=== PATIENT | female | born 1960 | race Caucasian/White ===

== ENCOUNTER 2017-10-24 08:11 | Outpatient (CLI) | payer MEDICARE, MEDICAID, SELFPAY ==
[2017-10-24 08:40] LABS: Abs Immature Grans 0.01 k/cumm (0.0-0.09); Absolute Basophil Count 0.03 k/cumm (0.0-0.2); Absolute Eosinophil Count 0.16 k/cumm (0.0-0.7); Absolute Lymphocyte Count 1.58 k/cumm (1.2-3.4); Absolute Monocyte Count 0.63 k/cumm (0.11-0.7); Absolute Neutrophil Count 3.93 k/cumm (1.2-6.7); Basophils % 0.5; Eosinophils % 2.5; HCT 45.5 % (36.0-46.0); HGB 15.1 g/dL (12.0-15.5); Immature Grans % 0.2; Lymphocytes % 24.9; Mean Corp. HGB Concentration 33.2 g/dL (32.0-36.0); Mean Corpuscular Hemoglobin 30.3 pg (27.0-33.0); Mean Corpuscular Volume 91.2 fL (80-95); Mean Platelet Volume 9.1 fL (8.0-11.0); Monocytes % 9.9; Platelet Count 192 x1000/uL (130-400); RBC 4.99 m/cumm (4.00-5.20); White Blood Cell Count 6.34 k/cumm (4.4-10.8)
[2017-10-24 08:54] LABS: VALPROIC ACID 55.7 ug/mL (50-100)
[2017-10-24 10:45] LABS: ALT 20 U/L (12-78); AST 14 U/L (15-37); Albumin 3.7 g/dL (3.4-5.0); Alkaline Phosphatase 74 U/L (46-116); Anion Gap 12.7 mmol/L (3-11); BUN 15 mg/dL (7-18); Bilirubin, Total 0.3 mg/dL (0.2-1.0); CO2 23.3 mmol/L (21.0-32.0); CREATININE 0.96 mg/dL (0.55-1.02); Calcium 9.6 mg/dL (8.5-10.1); Chloride 102 mmol/L (98-107); Cholesterol 184 mg/dL (50-200); Glucose 138 mg/dL (70-100); HDL Cholesterol 39 mg/dL (40-60); LDL CHOLESTEROL 113 mg/dL (<100); Potassium 4.4 mmol/L (3.5-5.1); Sodium 138 mmol/L (136-145); Total Protein 7.5 g/dL (6.4-8.2); Triglyceride 216 mg/dL (30-150)
== END 2017-10-24 08:12 ==
PROVIDERS: PCP Specialist/Technologist Athletic Trainer; Visit Provider Nurse Practitioner Psychiatric/Mental Health
DX: F25.0 Schizoaffective disorder, bipolar type (principal); Z51.81 Encounter for therapeutic drug level monitoring; Z79.899 Other long term (current) drug therapy; E88.09 Other disorders of plasma-protein metabolism, not elsewhere classified; D69.6 Thrombocytopenia, unspecified; E78.5 Hyperlipidemia, unspecified; I10 Essential (primary) hypertension
CPT/HCPCS: 36415; 80053; 80061; 83721; 80164; 85025

== ENCOUNTER 2018-01-15 07:10 | Outpatient (CLI) | payer MEDICARE, MEDICAID, SELFPAY ==
[2018-01-15 07:40] LABS: Abs Immature Grans 0.03 k/cumm (0.0-0.09); Absolute Basophil Count 0.03 k/cumm (0.0-0.2); Absolute Eosinophil Count 0.19 k/cumm (0.0-0.7); Absolute Lymphocyte Count 1.59 k/cumm (1.2-3.4); Absolute Monocyte Count 0.57 k/cumm (0.11-0.7); Absolute Neutrophil Count 4.43 k/cumm (1.2-6.7); Basophils % 0.4; Eosinophils % 2.8; HCT 45.2 % (36.0-46.0); HGB 15.2 g/dL (12.0-15.5); Immature Grans % 0.4; Lymphocytes % 23.2; Mean Corp. HGB Concentration 33.6 g/dL (32.0-36.0); Mean Corpuscular Hemoglobin 31.1 pg (27.0-33.0); Mean Corpuscular Volume 92.4 fL (80-95); Mean Platelet Volume 9.1 fL (8.0-11.0); Monocytes % 8.3; Neutrophils % 64.9; Platelet Count 172 x1000/uL (130-400); RBC 4.89 m/cumm (4.00-5.20); RBC Distribution Width 13.2 % (11.7-14.6); White Blood Cell Count 6.84 k/cumm (4.4-10.8)
[2018-01-15 07:54] LABS: VALPROIC ACID 67.4 ug/mL (50-100)
[2018-01-15 08:15] LABS: ALT 21 U/L (12-78); AST 14 U/L (15-37); Albumin 3.8 g/dL (3.4-5.0); Alkaline Phosphatase 91 U/L (46-116); Anion Gap 9.1 mmol/L (3-11); BUN 19 mg/dL (7-18); Bilirubin, Total 0.3 mg/dL (0.2-1.0); CO2 27.9 mmol/L (21.0-32.0); CREATININE 0.92 mg/dL (0.55-1.02); Calcium 9.7 mg/dL (8.5-10.1); Chloride 101 mmol/L (98-107); Glucose 149 mg/dL (70-100); Potassium 4.5 mmol/L (3.5-5.1); Sodium 138 mmol/L (136-145); Total Protein 7.2 g/dL (6.4-8.2)
== END 2018-01-15 07:30 ==
PROVIDERS: PCP Specialist/Technologist Athletic Trainer; Visit Provider Nurse Practitioner Psychiatric/Mental Health
DX: F25.0 Schizoaffective disorder, bipolar type (principal); Z51.81 Encounter for therapeutic drug level monitoring; Z79.899 Other long term (current) drug therapy
CPT/HCPCS: 36415; 80053; 80164; 85025

== ENCOUNTER 2018-02-27 08:28 | Outpatient (CLI) | payer MEDICARE, MEDICAID, SELFPAY ==
[2018-02-27 09:20] LABS: VALPROIC ACID 78.4 ug/mL (50-100)
[2018-02-27 10:08] LABS: ALT 19 U/L (12-78); AST 11 U/L (15-37); Albumin 3.6 g/dL (3.4-5.0); Alkaline Phosphatase 71 U/L (46-116); Anion Gap 8.6 mmol/L (3-11); BUN 14 mg/dL (7-18); Bilirubin, Total 0.3 mg/dL (0.2-1.0); CO2 29.4 mmol/L (21.0-32.0); CREATININE 0.92 mg/dL (0.55-1.02); Calcium 9.6 mg/dL (8.5-10.1); Chloride 104 mmol/L (98-107); Glucose 161 mg/dL (70-100); Potassium 4.4 mmol/L (3.5-5.1); Sodium 142 mmol/L (136-145); Total Protein 7.1 g/dL (6.4-8.2)
[2018-03-02 05:02] LABS: Haloperidol 14 ng/mL (5 - 16); Reduced Haloperidol 4.3 ng/mL (10 - 80)
== END 2018-02-27 08:48 ==
PROVIDERS: PCP Specialist/Technologist Athletic Trainer; Visit Provider Nurse Practitioner Psychiatric/Mental Health
DX: F25.0 Schizoaffective disorder, bipolar type (principal); Z51.81 Encounter for therapeutic drug level monitoring; Z79.899 Other long term (current) drug therapy
CPT/HCPCS: 36415; 80053; 80173; 80164

== ENCOUNTER 2018-12-29 10:03 | Emergency (ER) | payer MEDICARE, MEDICAID, SELFPAY ==
[2018-12-29 10:04] VITALS: BP 173/91; PULSE 103; RESP 18; TEMP 36.7; O2SAT 96
--- NOTE | 2018-12-29 10:18 | ED.GENADUL_ITS ---
Discharge Plan Disposition Patient Disposition: HOME Condition: Stable Discharge Details Chief Complaint: Orthopedic Clinical Impression: Chronic pain in left foot, Chronic pain of left ankle Primary Care Provider: Atilio Modi ED Provider: Jean Calixto Home Meds and New Rx's Prescriptions: No Action docusate sodium 100 MG capsule 100 mg PO DAILY RF: 0 haloperidol 5 MG tablet 5 mg PO BID RF: 0 loxapine succinate 25 MG capsule 150 mg PO BID RF: 0 haloperidol decanoate 100 MG/1 ML solution 100 mg IM .MONTHLY RF: 0 oxazepam 15 MG capsule 15 mg PO BID RF: 0 nicotine (polacrilex) [Nicorelief] 4 MG gum 1 piece gum PO .Q1-2H RF: 0 divalproex 500 MG tablet extended release 24 hr 2,500 mg PO HS RF: 0 aspirin [[place] Aspirin] 81 MG tablet,chewable 81 mg PO DAILY RF: 0 melatonin-pyridoxine (vit B6) 1 TAB tablet 6 mg PO HS RF: 0 metformin 500 MG tablet extended release 24 hr 1,000 mg PO BID RF: 0 sennosides [senna] 8.6 MG tablet 8.6 mg PO HS RF: 0 acetaminophen [Pain Reliever] 325 MG tablet 650 mg PO TID PRNRF: 0 ranitidine HCl [Zantac] 150 MG tablet 150 mg PO BID RF: 0 ammonium lactate 12 % Cream 1 applic TOPICAL QD-BID PRNRF: 0 multivitamin with minerals [Multiple Vitamin-Minerals] Tablet 1 tab PO DAILY RF: 0 atorvastatin 10 mg Tablet 10 mg PO DAILY RF: 0 losartan 25 mg Tablet 25 mg PO DAILY RF: 0 glipizide 5 mg Tablet 5 mg PO DAILY RF: 0 Discharge Instructions Instructions: Arthralgia (ED) Additional Instructions: Please wear these supportive ankle brace as I do feel that this will help with your discomfort. For your foot pain you may consider purchasing new shoes or at least shoe inserts to give your foot more support. Feel free to follow-up with local geriatric nurse practitioner for further evaluation or follow-up with your previous geriatric nurse practitioner in [place] as needed. For any further complaints or needs follow-up with your primary care provider for reassessment. For comfort you may take 650 mg of acetaminophen/Tylenol every 6 hours as needed for pain. Referrals: Atilio Modi [Primary Care Provider] - Luiz Lopez DPM [[facility] STAFF PHYSICIAN] - (As needed for reassessment of your foot pain) Discharge Data Discharge Date/Time-TO BE ENTERED AT DEPARTURE: 12/29/18 11:14 Medical Decision Making Patient presenting to the emergency department for chief complaint of left foot and ankle pain. Patient reports years ago she had a fall in the shower and injured her left ankle. She states since then she has had significant foot and ankle discomfort. She denies any recent injury or trauma but does state that she has had a increase in walking and ambulation. She does complain of significant amount of calluses on the right foot but otherwise denies any other medical complaints or needs at this time. Patient does have medical history of paranoid schizophrenia and bipolar and does seem significantly anxious at this time but is alert and oriented appropriately. Physical exam does show significant callus formation on the right foot but otherwise unremarkable exam. In regards to the left foot and ankle there is some medial tenderness to the foot otherwise no abnormality is appreciated. Given that patient is complaining about moderate amount of pain and discomfort I do feel is appropriate for radiological imaging to evaluate for any significant or severe changes. Pending results patient given acetaminophen. Review of radiological imaging does show some signs of degeneration of some of the foot and ankle consistent with arthritis or post trauma but I do not see any signs of acute fracture. Review of virtual radiologist report shows the same of no acute findings noted, previous trauma, degenerative changes. Patient placed in a lace up ankle brace to give her further support. Review of primary care records does show that patient has history of complaints of chronic foot and ankle pain. Given this I do not feel that there are any further interventions needed but patient should follow-up with primary care provider or geriatric nurse practitioner for further evaluation. After discussion of diagnosis and plan of care patient has no further needs, questions, or concerns and states clear understanding to return to the emergency department for any worsening symptoms. HPI General Mode of arrival: ambulatory . Date/Time Provider Initiated Documentation: 12/29/18 10:03 . Limitations to Documentation: no limitations . Information obtained by: patient and RN notes reviewed . History of Present Illness described as moderate, with intensity rated at 8. Quality is described as sharp, and is localized to the left and lower extremity. Patient started experiencing this year(s) and it has been constant. Other factors that worsen symptoms (Increased walking) . Patient notes no other symptoms.. Patient did receive the following treatments prior to arrival, none Related Data Home Medications Medication Instructions Recorded Confirmed docusate sodium 100 mg PO DAILY 08/28/14 12/29/18 aspirin [[place] Aspirin] 81 mg PO DAILY 03/03/15 07/16/15 divalproex 2,500 mg PO HS 03/03/15 12/29/18 haloperidol 5 mg PO BID 03/03/15 12/29/18 haloperidol decanoate 100 mg IM .MONTHLY 03/03/15 12/29/18 loxapine succinate 150 mg PO BID 03/03/15 12/29/18 melatonin-pyridoxine (vit B6) 6 mg PO HS 03/03/15 12/29/18 metformin 1,000 mg PO BID 03/03/15 12/29/18 nicotine (polacrilex) [Nicorelief] 1 piece gum PO .Q1-2H 03/03/15 12/29/18 oxazepam 15 mg PO BID 03/03/15 12/29/18 sennosides [senna] 8.6 mg PO HS 06/24/15 12/29/18 acetaminophen [Pain Reliever] 650 mg PO TID PRN 07/16/15 12/29/18 ranitidine HCl [Zantac] 150 mg PO BID tab 07/21/15 12/29/18 ammonium lactate 1 applic TOPICAL QD-BID PRN 12/29/18 12/29/18 atorvastatin 10 mg PO DAILY 12/29/18 12/29/18 glipizide 5 mg PO DAILY 12/29/18 12/29/18 losartan 25 mg PO DAILY 12/29/18 12/29/18 multivitamin with minerals 1 tab PO DAILY 12/29/18 12/29/18 [Multiple Vitamin-Minerals] Previous Rx's Medication Instructions Recorded ranitidine HCl [Zantac] 150 mg PO BID tab 07/21/15 Allergies Allergy/AdvReac Type Severity Reaction Status Date / Time paliperidone AdvReac Intermediate increased Unverified 12/29/18 10:07 LFT's (Invega Sustenna injection) General Stated Complaint: Orthopedic OSCAR: 3 Review of Systems Constitutional Constitutional: Denies frequent falls Musculoskeletal Musculoskeletal: Reports as per HPI, Reports arthralgias, Denies joint swelling, Denies numbness and Denies tingling Integumentary/Breasts Skin/Breast: Denies erythema Neurologic Neurologic: Denies frequent falls, Denies numbness and Denies tingling [facility] Social History Smoking/Tobacco Use Status: Current every day Alcohol Intake: current Drug use: Never Additional Social history: pt states she sometimes feels safe at home. states boyfriend dropped her off and left. Exam Const General: cooperative, no acute distress and anxious Orientation: alert, awake and oriented x3 Resp Effort & Inspection: normal respiratory effort and able to speak in complete sentences Cardio Rate: regular rate Rhythm: regular rhythm Extrem General: normal exam except as noted Right lower extremity: foot Details: toes with normal ROM, no edema, motor- sensory exam Details: two point discrimination normal and light-touch normal and other (Patient has significant calluses to medial aspect of both heel and first MCP); no tenderness Left lower extremity: knee Details: normal to inspection and normal ROM; no tenderness, lower leg Details: no tenderness, ankle Details: normal to inspection, no edema and normal ROM; no tenderness, no abrasions, no la cerations, no ecchymosis and no crepitus and foot Details: normal capillary refill, normal to inspection, tenderness Location: of the medial foot, toes with normal ROM, no edema, vascular exam Details: dorsalis pedis pulse present, posterior tibial pulse present and normal capillary refill and motor-sensory exam Details: two point discrimination normal and light-touch normal; no ecchymosis and no crepitus Course Vital Signs Vital signs: Vital Signs Temperature 36.7 C 12/29/18 10:04 Pulse 103 H 12/29/18 10:04 Respiratory Rate 18 12/29/18 10:04 Blood Pressure 173/91 H 12/29/18 10:04 Pulse Oximetry 96 12/29/18 10:04 Temperature 36.7 C 12/29/18 10:04 Temperature Source Skin 12/29/18 10:04 Pulse 103 H 12/29/18 10:04 Respiratory Rate 18 12/29/18 10:04 Respiratory Effort Non-Labored 12/29/18 10:08 Blood Pressure 173/91 H 12/29/18 10:04 Pulse Oximetry 96 12/29/18 10:04 Pain Level 9 12/29/18 10:04
--- NOTE | 2018-12-29 10:18 | DI.RAD_ITS ---
EXAM: XR ANKLE LT COMPLETE CLINICAL HISTORY: pain TECHNIQUE: COMPARISON: XR FOOT LT COMPLETE from 12/29/2018 FINDINGS: Three views of the ankle and three views of the foot were obtained. There degenerative and possible old post traumatic findings at the tibiotalar joint. No evidence of acute fracture. There are degenerative changes of the joints of the midfoot and forefoot. No evidence of acute fract ure. IMPRESSION:
[2018-12-29] MEDS: Acetaminophen 325 MG TAB 650 MG PO (10:23)
--- NOTE | 2018-12-29 10:53 | DI.VRAD_ITS ---
PROCEDURE INFORMATION: Exam: XR Left Foot Complete Exam date and time: 12/29/2018 10:36 AM Clinical history: 57 years old, female; Other: Pain TECHNIQUE: Imaging protocol: XR Left foot. Views: 3 or more views. COMPARISON: CR LEFT ANKLE COMPLETE 06/30/2015 9:36 AM FINDINGS: Bones/joints: Bipartite medial sesamoid. Irregularity about the distal fifth metatarsal metadiaphysis likely represents sequelae of prior trauma. Degenerative changes of the fifth interphalangeal joint. Mild dorsal midfoot degenerative change. Well-corticated ossific fragment adjacent to the cuboid may represent accessory ossicle versus sequela of prior trauma. Calcaneal enthesophytes. No joint effusion. Soft tissues: Normal. IMPRESSION: 1. No acute fracture. 2. Degenerative and post traumatic changes. Dictated and Authenticated by: Jaylen Cramer MD. Ordering:TYREE Pena MD
--- NOTE | 2018-12-29 10:59 | DI.VRAD_ITS ---
PROCEDURE INFORMATION: Exam: XR Left Ankle Exam date and time: 12/29/2018 10:36 AM Clinical history: 57 years old, female; Other: Pain TECHNIQUE: Imaging protocol: XR Left ankle. Views: 3 or more views. COMPARISON: CR LEFT ANKLE COMPLETE 06/30/2015 9:36 AM FINDINGS: Bones/joints: No acute fracture. No dislocation. Scattered degenerative and chronic post traumatic changes. No ankle joint effusion. Ankle mortise is maintained. Soft tissues: Normal. IMPRESSION: No acute findings. Dictated and Authenticated by: Jaylen Cramer MD. Ordering:TYREE Pena MD
[2018-12-29 11:15] VITALS: BP 132/74; PULSE 76; RESP 16; O2SAT 97
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
== END 2018-12-29 11:14 | disposition home or self-care (01) ==
LOC: ER 11:24
PROVIDERS: Emergency Provider Nurse Practitioner Family; PCP Specialist/Technologist Athletic Trainer
DX: M25.572 Pain in left ankle and joints of left foot (principal); G89.29 Other chronic pain
CPT/HCPCS: 29515; 99283; 73610; 73630; L1902

== ENCOUNTER 2019-01-02 16:57 | Emergency (ER) | payer MEDICARE, MEDICAID, SELFPAY ==
[2019-01-02 17:09] VITALS: BP 170/100; PULSE 105; RESP 16; TEMP 36.3; O2SAT 99
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
[2019-01-02 18:21] LABS: Bilirubin Negative (Negative); Blood Negative (Negative); Clarity Clear (Clear); Glucose Negative (Negative); Ketones Negative (Negative); Leukocyte Esterase Small (Negative); Nitrite Negative (Negative); Specific Gravity <= 1.005 (1.005-1.025); Urobilinogen 0.2 EU/dL (Up TO 0.2); pH 5.5 (5-8)
[2019-01-02 18:29] LABS: Bacteria Negative HPF (Negative); C & S Indicated? Yes; Casts Negative LPF (Negative); Crystals Negative HPF (Negative); Epithelial Cells Negative HPF (Negative); Mucus Negative (Negative); Other Cells Negative (Negative); RBC Negative (0-2)
[2019-01-02 19:17] VITALS: PULSE 107
[2019-01-02 19:26] VITALS: BP 160/94; PULSE 100; RESP 16; O2SAT 96
--- NOTE | 2019-01-02 21:35 | PDOC.MHCN ---
Date of service: 01/02/19 Time of Service: 21:36 Mental Health Crisis Note Presenting Issue How did you arrive at the ED and why did you come: Patient arrived to the ED with Police escort, Ashley Farah. Precipitating Factors Client has been decompensating in the community, as they are not med compliant over the last few weeks. Disposition BEHAVIOR: Patient was anxious and openly sharing her delusions. EYE CONTACT: Patient maintained appropriate eye contact. MOOD: Client was anxious.
== END 2019-01-02 19:25 | disposition home or self-care (01) ==
PROVIDERS: Emergency Provider Physician Assistant; PCP Specialist/Technologist Athletic Trainer
DX: F20.9 Schizophrenia, unspecified (principal); I10 Essential (primary) hypertension
CPT/HCPCS: 81025; 99282; 81003; 81015; 87086

== ENCOUNTER 2019-01-07 07:19 | Emergency (ER) | payer MEDICARE, MEDICAID, SELFPAY ==
[2019-01-07 07:32] VITALS: BP 158/93; PULSE 80; RESP 18; TEMP 36.5; O2SAT 95
--- NOTE | 2019-01-07 07:51 | ED.GENADUL_ITS ---
Discharge Plan Disposition Patient Disposition: HOME Condition: Stable Discharge Details Chief Complaint: PsychEval Clinical Impression: Schizoaffective disorder Primary Care Provider: Atilio Modi ED Provider: Caroline Villareal Home Meds and New Rx's Prescriptions: Continued docusate sodium 100 MG capsule 100 mg PO DAILY RF: 0 haloperidol 5 MG tablet 10 mg PO BID RF: 0 loxapine succinate 25 MG capsule 75 mg PO BID RF: 0 haloperidol decanoate 100 MG/1 ML solution 300 mg IM .MONTHLY RF: 0 oxazepam 15 MG capsule 15 mg PO QHS PRNRF: 0 nicotine (polacrilex) [Nicorelief] 4 MG gum 1 piece gum PO .Q1-2H RF: 0 divalproex 500 MG tablet extended release 24 hr 2,500 mg PO HS RF: 0 aspirin [[place] Aspirin] 81 MG tablet,chewable 81 mg PO DAILY RF: 0 metformin 500 MG tablet extended release 24 hr 1,000 mg PO BID RF: 0 sennosides [senna] 8.6 MG tablet 8.6 mg PO HS RF: 0 acetaminophen [Pain Reliever] 325 MG tablet 650 mg PO TID PRNRF: 0 ranitidine HCl [Zantac] 150 MG tablet 150 mg PO BID RF: 0 ammonium lactate 12 % Cream 1 applic TOPICAL QD-BID PRNRF: 0 multivitamin with minerals [Multiple Vitamin-Minerals] Tablet 1 tab PO DAILY RF: 0 atorvastatin 10 mg Tablet 10 mg PO HS RF: 0 losartan 25 mg Tablet 25 mg PO HS RF: 0 glipizide 5 mg Tablet 5 mg PO DAILY RF: 0 benztropine 1 mg Tablet 0.5 mg PO BID RF: 0 hydroxyzine HCl 25 mg Tablet 25 mg PO TID PRNRF: 0 polyethylene glycol 3350 [Miralax] 17 gram/dose Powder 17 g PO DAILY PRNRF: 0 Discharge Instructions Additional Instructions: Please return immediately to the emergency department if you develop any new or worsening symptoms or if you become otherwise concerned. It is extremely important that you call as soon as possible to make an appointment to be seen in follow-up for this visit by your counselor and by your primary care doctor as we discussed. Referrals: Atilio Modi [Primary Care Provider] - Discharge Data Discharge Date/Time-TO BE ENTERED AT DEPARTURE: 01/07/19 11:23 Medical Decision Making Rivka Mcgowan is a 58-year-old woman with a history of hyperlipidemia, non- insulin dependent diabetes, hypertension, schizoaffective disorder, COPD, chronic kidney disease who presented to the emergency department without medical complaint, stating that she is looking for somebody to give her cigarettes. Per her crisis conditional clinician, patient has been having escalating delusions over the past week, which has occurred episodically with her several times in the past. On exam patient is well and nontoxic appearing although somewhat disheveled. Benign cardiopulmonary exam. Patient with somewhat bizarre behavior, seems to converse normally but intermittently seems to have delusions, e.g. when patient could not find the food that she believed is in the room she started yelling throw it out, throw it out repeatedly, but calmed down within a minute and return to conversing normally. No suicidal ideation, no homicidal ideation, no apparent hallucinations. Concern for schizoaffective disorder inadequately treated by current medications versus inciting factors such as UTI, metabolic/lyte disturbance. Exam/history is not consistent with acute emergent intracranial process, sepsis, pneumonia. Plan for EKG, UA, screening labs, mental health evaluation. Will monitor and reassess. Patient has remained calm and cooperative throughout her stay in the emergency department, she remains alert and oriented and is in no distress. Work-up nondiagnostic. clinical rehabilitation specialist felt that patient would be appropriate for discharge, however given that delusions seem to be increasing somewhat, he did offer admission either at an inpatient facility or at a care bed. I discussed these options with the patient, and she stated that she wanted to go home. She stated to me that she did in fact feel safe at home, and that she would feel better going here than anywhere else. At this time patient I do not have e vidence that patient is a threat to herself or to others. There is no indication to place her involuntarily in an inpatient unit. I had a lengthy discussion with the patient regarding return to emergency department precautions, and importance of outpatient follow-up with her primary care doctor and also with her mental health workers/providers. Patient verbalized understanding of the plan was amenable. All questions were answered. Patient was discharged home with clear plan for outpatient follow-up, with chisel worker planning to schedule appointments for the patient with her mental he alth provider within the next few days. Medical Records Medical records reviewed: Yes I reviewed the patient's medical records. Lab Data Lab results reviewed: Yes I reviewed the patient's lab results. Labs: 01/07/19 08:38 Urine - Reflex from Ua Urine Culture - Final Gram Positive Trupti,Mixed Laboratory Tests Range/Units 01/07/19 01/07/19 01/07/19 08:38 08:38 09:08 WBC (4.4-10.8) k/cumm RBC (4.00-5.20) m/cumm Hgb (12.0-15.5) g/dL Hct (36.0-46.0) % MCV (80-95) fL MCH (27.0-33.0) pg MCHC (32.0-36.0) g/dL RDW (11.7-14.6) % Plt Count (130-400) x1000/uL MPV (8.0-11.0) fL Immature Gran % Neutrophils % Lymphocytes % Monocytes % Eosinophils % Basophils % Absolute Neutrophils (1.2-6.7) k/cumm Absolute Lymphocytes (1.2-3.4) k/cumm Absolute Monocytes (0.11-0.7) k/cumm Absolute Eosinophils (0.0-0.7) k/cumm Absolute Basophils (0.0-0.2) k/cumm Sodium (136-145) mmol/L 137 Potassium (3.5-5.1) mmol/L 3.9 Chloride (98-107) mmol/L 102 Carbon Dioxide (21.0-32.0) mmol/L 26.8 Anion Gap (3-11) mmol/L 8.2 BUN (7-18) mg/dL 13 Creatinine (0.55-1.02) mg/dL 1.00 Estimated GFR/1.73 m2 (mL/min/1.73m2) 57.15 Glucose (70-100) mg/dL 119 H Calcium (8.5-10.1) mg/dL 9.7 Total Bilirubin (0.2-1.0) mg/dL 0.3 AST (15-37) U/L 30 ALT (14-59) U/L 27 Alkaline Phosphatase (46-116) U/L 77 Total Protein (6.4-8.2) g/dL 8.1 Albumin (3.4-5.0) g/dL 3.6 TSH (0.36-3.74) uIU/mL 0.97 Urine Color (Yellow) Yellow Urine Clarity (Clear) Clear Urine pH (5-8) 6.0 Ur Specific [place] (1.005-1.025) <= 1.005 Urine Protein (Negative) mg/dL Negative Urine Ketones (Negative) mg/dL Negative Urine Blood (Negative) Negative Urine Nitrite (Negative) Negative Urine Bilirubin (Negative) Negative Urine Urobilinogen (Up TO 0.2) EU/dL 0.2 Ur Leukocyte Esterase (Negative) Small H Urine RBC (0-2) 0-2 Urine WBC (0-5) HPF 3-5 Ur Epithelial Cells (Negative) HPF Rare Urine Crystals (Negative) HPF Negative Urine Bacteria (Negative) HPF Rare Urine Casts (Negative) LPF Negative Urine Mucus (Negative) Negative Ur Culture Indicated? Yes Urine Glucose (Negative) mg/dL Negative Salicylates (2.8-20.0) mg/dL Urine Opiates Screen (Negative) Negative Urine Methadone Screen (Negative) Negative Acetaminophen (10-30) ug/mL Ur Barbiturates Screen (Negative) Negative Ur Tricyclics Screen (Negative) Negative Ur Amphetamines Screen (Negative) Negative U Benzodiazepines Scrn (Negative) Negative Urine Cocaine Screen (Negative) Negative Ur THC Screen (Negative) Negative Range/Units 01/07/19 01/07/19 09:08 09:08 WBC (4.4-10.8) k/cumm 9.35 RBC (4.00-5.20) m/cumm 5.02 Hgb (12.0-15.5) g/dL 15.0 Hct (36.0-46.0) % 45.0 MCV (80-95) fL 89.6 MCH (27.0-33.0) pg 29.9 MCHC (32.0-36.0) g/dL 33.3 RDW (11.7-14.6) % 13.8 Plt Count (130-400) x1000/uL 221 MPV (8.0-11.0) fL 8.9 Immature Gran % 0.3 Neutrophils % 70.2 Lymphocytes % 18.2 Monocytes % 9.9 Eosinophils % 1.2 Basophils % 0.2 Absolute Neutrophils (1.2-6.7) k/cumm 6.56 Absolute Lymphocytes (1.2-3.4) k/cumm 1.70 Absolute Monocytes (0.11-0.7) k/cumm 0.93 H Absolute Eosinophils (0.0-0.7) k/cumm 0.11 Absolute Basophils (0.0-0.2) k/cumm 0.02 Sodium (136-145) mmol/L Potassium (3.5-5.1) mmol/L Chloride (98-107) mmol/L Carbon Dioxide (21.0-32.0) mmol/L Anion Gap (3-11) mmol/L BUN (7-18) mg/dL Creatinine (0.55-1.02) mg/dL Estimated GFR/1.73 m2 (mL/min/1.73m2) Glucose (70-100) mg/dL Calcium (8.5-10.1) mg/dL Total Bilirubin (0.2-1.0) mg/dL AST (15-37) U/L ALT (14-59) U/L Alkaline Phosphatase (46-116) U/L Total Protein (6.4-8.2) g/dL Albumin (3.4-5.0) g/dL TSH (0.36-3.74) uIU/mL Urine Color (Yellow) Urine Clarity (Clear) Urine pH (5-8) Ur Specific [place] (1.005-1.025) Urine Protein (Negative) mg/dL Urine Ketones (Negative) mg/dL Urine Blood (Negative) Urine Nitrite (Negative) Urine Bilirubin (Negative) Urine Urobilinogen (Up TO 0.2) EU/dL Ur Leukocyte Esterase (Negative) Urine RBC (0-2) Urine WBC (0-5) HPF Ur Epithelial Cells (Negative) HPF Urine Crystals (Negative) HPF Urine Bacteria (Negative) HPF Urine Casts (Negative) LPF Urine Mucus (Negative) Ur Culture Indicated? Urine Glucose (Negative) mg/dL Salicylates (2.8-20.0) mg/dL 9.6 Urine Opiates Screen (Negative) Urine Methadone Screen (Negative) Acetaminophen (10-30) ug/mL < 2 L Ur Barbiturates Screen (Negative) Ur Tricyclics Screen (Negative) Ur Amphetamines Screen (Negative) U Benzodiazepines Scrn (Negative) Urine Cocaine Screen (Negative) Ur THC Screen (Negative) ECG Data Attestation: I personally reviewed and interpreted this ECG (s) as follows: Interpretation: EKG shows sinus tachycardia at 106, normal axis, nonspecific ST changes, normal QRS interval, no STEMI, nondiagnostic EKG HPI General Mode of arrival: ambulatory . Date/Time Provider Initiated Documentation: 01/07/19 07:48 . Information obtained by: patient, RN notes reviewed and old records reviewed . HPI Narrative: Rivka Mcgowan is a 58-year-old woman with a history of hyperlipidemia, [id number] diabetes, hypertension, COPD, schizoaffective disorder, chronic kidney disease presenting to the emergency department requesting cigarettes, denies any complaint. Patient [facility], and the cloth designer came out to talk to her. Patient states that a very nice person drove me to the emergency department so I could get some cigarettes. Patient reports that she has chronic pain in both of her feet for several years, but the pain is only present when she is standing. She states that while resting in bed as she is now she has no pain whatsoever. She denies fevers, vomiting, diarrhea, shortness of breath, recent illness. Patient reports she has been eating and drinking as usual. clinical rehabilitation specialist who knows patient well is present in the emergency department. He states that over the past week patient's delusions have been worsening somewhat. He states that similar episodes have occurred several times in the past, although patient's schizoaffective disease is usually relatively well controlled by her medications. He states that there have been no changes in her medications. Her medications have been delivered to her morning and night, and she is watched while she takes them.. [facility] and was mildly disruptive, and was thus brought to the emergency department by police. Patient denies suicidality homicidality. She does state that she does not feel safe at home. She states I have a big mouth and I have been running it, so they might come after me for that. She does not state who they is. Related Data Home Medications Medication Instructions Recorded Confirmed docusate sodium 100 mg PO DAILY 08/28/14 01/07/19 aspirin [[place] Aspirin] 81 mg PO DAILY 03/03/15 01/07/19 divalproex 2,500 mg PO HS 03/03/15 01/07/19 haloperidol 10 mg PO BID 03/03/15 01/07/19 haloperidol decanoate 300 mg IM .MONTHLY 03/03/15 01/07/19 loxapine succinate 75 mg PO BID 03/03/15 01/07/19 metformin 1,000 mg PO BID 03/03/15 01/07/19 nicotine (polacrilex) [Nicorelief] 1 piece gum PO .Q1-2H 03/03/15 01/07/19 oxazepam 15 mg PO QHS PRN 03/03/15 01/07/19 sennosides [senna] 8.6 mg PO HS 06/24/15 01/07/19 acetaminophen [Pain Reliever] 650 mg PO TID PRN 07/16/15 01/07/19 ranitidine HCl [Zantac] 150 mg PO BID tab 07/21/15 01/07/19 ammonium lactate 1 applic TOPICAL QD-BID PRN 12/29/18 01/07/19 atorvastatin 10 mg PO HS 12/29/18 01/07/19 glipizide 5 mg PO DAILY 12/29/18 01/07/19 losartan 25 mg PO HS 12/29/18 01/07/19 multivitamin with minerals 1 tab PO DAILY 12/29/18 01/07/19 [Multiple Vitamin-Minerals] benztropine 0.5 mg PO BID 01/02/19 01/07/19 hydroxyzine HCl 25 mg PO TID PRN 01/02/19 01/07/19 polyethylene glycol 3350 [Miralax] 17 g PO DAILY PRN 01/07/19 01/07/19 Previous Rx's Medication Instructions Recorded ranitidine HCl [Zantac] 150 mg PO BID tab 07/21/15 Allergies Allergy/AdvReac Type Severity Reaction Status Date / Time paliperidone AdvReac Intermediate increased Unverified 01/07/19 14:42 LFT's (Invega Sustenna injection) General Stated Complaint: PsychEval OSCAR: 3 Review of Systems Narrative: Constitutional: denies fevers Eyes: denies eye pain ENT: denies facial pain, dental pain, sore throat Cardiovascular: denies chest pain Respiratory: denies SOB, cough GI: denies abdominal pain, vomiting, diarrhea : denies flank pain MSK: denies back pain, neck pain, arthralgias, myalgias Skin: denies rash Neuro: denies headaches, weakness PFSH Medical History Ankle joint pain (Acute) Drug-induced diabetes mellitus (Acute) Drug-induced diabetes mellitus with hyperlipidemia (Acute) Drug-induced diabetes mellitus without complication (Acute) Hip bursitis, left (Acute) Hyperbilirubinemia (Acute) Hyperlipidemia (Acute) Hypertension (Chronic) Neck pain (Acute) Schizoaffective disorder (Acute) Tactile hallucinations (Acute) Thrombocytopenia (Chronic) Social History Smoking/Tobacco Use Status: Current every day Tobacco Type: cigarettes Alcohol Intake: current Drug use: Never Exam Narrative Exam Narrative: Constitutional: well and [id number]-[id number], pleasant, con versing normally HENT: head atraumatic/normocephalic/normal inspection, mucous membranes moist Eyes: conjunctiva normal, sclera normal, pupils 3mm b/l Neck: no stridor, normal ROM, trachea midline Chest: normal inspection Resp: normal work of breathing, LCTAB Cardio: normal rate, normal rhythm, no murmur appreciated GI: abdomen soft, non-tender, non-distended Back: normal inspection, no rash Skin: warm, dry, normal color, no rash Neuro: alert, not altered, grossly non-focal, normal tone, oriented x3 Ext: no edema, patient is wearing socks and refuses to remove her socks for foot examination Psych: normal mood, normal affect, some delusional thinking, intermittently odd behavior, no suicidality, no homicidality Course Vital Signs Vital signs: Vital Signs Temperature 36.5 C 01/07/19 07:32 Pulse 80 01/07/19 07:32 Respiratory Rate 18 01/07/19 07:32 Blood Pressure 158/93 H 01/07/19 07:32 Pulse Oximetry 95 01/07/19 07:32 Temperature 36.5 C 01/07/19 07:32 Temperature Source Temporal Artery Scan 01/07/19 07:32 Pulse 80 01/07/19 07:32 Respiratory Rate 18 01/07/19 07:32 Respiratory Effort Non-Labored 01/07/19 07:40 Blood Pressure 158/93 H 01/07/19 07:32 Blood Pressure Position Sitting 01/07/19 07:32 Pulse Oximetry 95 01/07/19 07:32 Oxygen Delivery Method Room Air 01/07/19 07:32 Oxygen Flow Rate 0 01/07/19 07:32 Pain Level 0 01/07/19 07:32
[2019-01-07 08:52] LABS: Bilirubin Negative (Negative); Blood Negative (Negative); Clarity Clear (Clear); Glucose Negative (Negative); Ketones Negative (Negative); Leukocyte Esterase Small (Negative); Nitrite Negative (Negative); Specific Gravity <= 1.005 (1.005-1.025); Urobilinogen 0.2 EU/dL (Up TO 0.2)
[2019-01-07 08:58] LABS: *AMPHETAMINES SCREEN URINE Negative (Negative); *BARBITURATES SCREEN URINE Negative (Negative); *BENZODIAZEPINES SCREEN URINE Negative (Negative); Cannabinoids THC Negative (Negative); Cocaine Screen,Urine Negative (Negative); METHADONE URINE SCREEN Negative (Negative); OPIATES URINE SCREEN Negative (Negative)
[2019-01-07 09:03] LABS: Tricyclic Antidepressants Negative (Negative)
[2019-01-07 09:08] LABS: RBC 0-2 (0-2)
[2019-01-07 09:09] LABS: Bacteria Rare HPF (Negative); C & S Indicated? Yes; Casts Negative LPF (Negative); Crystals Negative HPF (Negative); Epithelial Cells Rare HPF (Negative); Mucus Negative (Negative)
[2019-01-07 09:19] LABS: Abs Immature Grans 0.03 k/cumm (0.0-0.09); Absolute Basophil Count 0.02 k/cumm (0.0-0.2); Absolute Eosinophil Count 0.11 k/cumm (0.0-0.7); Absolute Monocyte Count 0.93 k/cumm (0.11-0.7); Absolute Neutrophil Count 6.56 k/cumm (1.2-6.7); Basophils % 0.2; Eosinophils % 1.2; Immature Grans % 0.3; Lymphocytes % 18.2; Mean Corp. HGB Concentration 33.3 g/dL (32.0-36.0); Mean Corpuscular Hemoglobin 29.9 pg (27.0-33.0); Mean Corpuscular Volume 89.6 fL (80-95); Mean Platelet Volume 8.9 fL (8.0-11.0); Monocytes % 9.9; Neutrophils % 70.2; Platelet Count 221 x1000/uL (130-400); RBC 5.02 m/cumm (4.00-5.20); RBC Distribution Width 13.8 % (11.7-14.6); White Blood Cell Count 9.35 k/cumm (4.4-10.8)
[2019-01-07 09:37] LABS: ALT 27 U/L (14-59); AST 30 U/L (15-37); Albumin 3.6 g/dL (3.4-5.0); Alkaline Phosphatase 77 U/L (46-116); Anion Gap 8.2 mmol/L (3-11); BUN 13 mg/dL (7-18); Bilirubin, Total 0.3 mg/dL (0.2-1.0); CO2 26.8 mmol/L (21.0-32.0); Calcium 9.7 mg/dL (8.5-10.1); Chloride 102 mmol/L (98-107); Estimated GFR 57.15 (mL/min/1.73m2); Glucose 119 mg/dL (70-100); Potassium 3.9 mmol/L (3.5-5.1); Sodium 137 mmol/L (136-145); TSH 0.97 uIU/mL (0.36-3.74); Total Protein 8.1 g/dL (6.4-8.2)
[2019-01-07 09:50] LABS: Salicylate 9.6 mg/dL (2.8-20.0)
[2019-01-07 09:54] LABS: Acetaminophen < 2 ug/mL (10-30)
[2019-01-07 11:23] VITALS: PULSE 103; RESP 18; TEMP 36.7; O2SAT 96
--- NOTE | 2019-01-07 13:01 | PDOC.MHCN_ITS ---
Date of service: 01/07/19 Time of Service: 07:30 Mental Health Crisis Note Presenting Issue How did you arrive at the ED and why did you come: Client arrived at ER via police. Precipitating Factors Client denies SI/HI Disposition BEHAVIOR: Client seems to be responding to AH. Not immediately cooperative, but re-directable. EYE CONTACT: intense at times. MOOD: labile AFFECT: Manic APPETITE: States she is not eating, but did consume coffee and donuts while in ER. SLEEP(trouble falling/staying asleep: Client states she is not sleeping. Plan Client states that she is not willing to go to a psych hospital or a care bed. Will discharge home after labs results are in and she chats with the doctor. Signature Clinician's Name/Title: Srinivas Schafer, billing customer service representative
== END 2019-01-07 11:23 | disposition home or self-care (01) ==
PROVIDERS: Emergency Provider Student in an Organized Health Care Education/Training Program; PCP Specialist/Technologist Athletic Trainer
DX: F25.9 Schizoaffective disorder, unspecified (principal); E11.22 Type 2 diabetes mellitus with diabetic chronic kidney disease; N18.9 Chronic kidney disease, unspecified; I12.9 Hypertensive chronic kidney disease with stage 1 through stage 4 chronic kidney disease, or unspecified chronic kidney disease; J44.9 Chronic obstructive pulmonary disease, unspecified; Z79.84 Long term (current) use of oral hypoglycemic drugs; F17.210 Nicotine dependence, cigarettes, uncomplicated
CPT/HCPCS: 36415; 80053; 80307; 99284; 80329; 81003; 81015; 84443; 85025; 87086

== ENCOUNTER 2019-01-07 14:15 | Emergency (ER) | payer MEDICARE, MEDICAID, SELFPAY ==
[2019-01-07 14:22] VITALS: BP 158/102; PULSE 95; RESP 18; TEMP 36.7; O2SAT 99
--- NOTE | 2019-01-07 14:40 | ED.GENADUL_ITS ---
Discharge Plan Disposition Patient Disposition: OTHER Condition: Stable Discharge Details Chief Complaint: PsychEval Clinical Impression: Schizoaffective disorder Primary Care Provider: Atilio Modi ED Provider: Caroline Villareal Home Meds and New Rx's Prescriptions: Continued docusate sodium 100 MG capsule 100 mg PO DAILY RF: 0 haloperidol 5 MG tablet 10 mg PO BID RF: 0 loxapine succinate 25 MG capsule 75 mg PO BID RF: 0 haloperidol decanoate 100 MG/1 ML solution 300 mg IM .MONTHLY RF: 0 oxazepam 15 MG capsule 15 mg PO QHS PRNRF: 0 nicotine (polacrilex) [Nicorelief] 4 MG gum 1 piece gum PO .Q1-2H RF: 0 divalproex 500 MG tablet extended release 24 hr 2,500 mg PO HS RF: 0 aspirin [[place] Aspirin] 81 MG tablet,chewable 81 mg PO DAILY RF: 0 metformin 500 MG tablet extended release 24 hr 1,000 mg PO BID RF: 0 sennosides [senna] 8.6 MG tablet 8.6 mg PO HS RF: 0 acetaminophen [Pain Reliever] 325 MG tablet 650 mg PO TID PRNRF: 0 ranitidine HCl [Zantac] 150 MG tablet 150 mg PO BID RF: 0 ammonium lactate 12 % Cream 1 applic TOPICAL QD-BID PRNRF: 0 multivitamin with minerals [Multiple Vitamin-Minerals] Tablet 1 tab PO DAILY RF: 0 atorvastatin 10 mg Tablet 10 mg PO HS RF: 0 losartan 25 mg Tablet 25 mg PO HS RF: 0 glipizide 5 mg Tablet 5 mg PO DAILY RF: 0 benztropine 1 mg Tablet 0.5 mg PO BID RF: 0 hydroxyzine HCl 25 mg Tablet 25 mg PO TID PRNRF: 0 polyethylene glycol 3350 [Miralax] 17 gram/dose Powder 17 g PO DAILY PRNRF: 0 Discontinued melatonin-pyridoxine (vit B6) 1 TAB tablet 6 mg PO HS RF: 0 Discharge Instructions Additional Instructions: You are being discharged to a care bed. Please go directly there. Please return immediately to the emergency department he develop any new or worsening symptoms or if you become otherwise concerned. It is extremely important that you call as soon as possible to make an appointment to be seen in follow-up for this visit by your primary care doctor, and also by your mental health provider. Referrals: Atilio Modi [Primary Care Provider] - Discharge Data Discharge Date/Time-TO BE ENTERED AT DEPARTURE: 01/07/19 16:13 Medical Decision Making Rivka Mcgowan is a 58 y/o woman with history of hypertension, chronic kidney disease, COPD, hyperlipidemia, diabetes, schizoaffective disorder who presented to the emergency department for being somewhat disorderly downtown and requesting placement in care bed, after being seen here earlier today with escalating delusions related to her schizoaffective disease, discharged home at that time. On exam patient is well and nontoxic appearing. She is calm and cooperative. She is oriented x3. She does have intermittent odd behaviors and does exhibit some delusional thinking. No apparent hallucinations, no apparent homicidality or suicidality. At this time given evaluation earlier today, no need to repeat blood work, UA. Exam/history is not consistent with acute emergent intracranial process, metabolic/lyte derangement, other acute emergent life-threatening process. Concern for schizoaffective disorder requiring medi cation optimization. Mental health has seen patient in the emergency department, and believes patient is appropriate for care bed. Patient declines inpatient stay for medication optimization that was offered to her, but does request care bed. At this time I do not believe that it would be in the patient's best interest to place her in inpatient care against her will, nor is this indicated at this time as there is no evidence that she is an immediate threat to herself or to anybody else. Plan for discharge to care bed. Mental health to schedule follow-up appointments this week with patient's mental health providers and PCP. 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 Patient and portable track crew chief amenable to the plan. Patient was discharged with clear plan for outpatient follow-up. Medical Records Medical records reviewed: Yes I reviewed the patient's medical records. HPI General Mode of arrival: ambulatory . Date/Time Provider Initiated Documentation: 01/07/19 14:32 . Information obtained by: patient, RN notes reviewed and old records reviewed . HPI Narrative: Rivka Mcgowan is a 58 y/o woman with history of hypertension, chronic kidney disease, COPD, hyperlipidemia, diabetes, schizoaffective disorder presenting to the emergency department with disruptive conduct in [facility]. Patient states that she feels fine and has no complaints. Patient states that she was trying to buy cigarettes, but no one would give me any. Per EMS, patient was being somewhat disruptive, however she was cooperative and nonviolent at the scene. Patient denies any pain, any trauma, any other symptoms. She was seen here earlier today by me for same complaint, and offered care bed at the time. Patient declined care bed at the time, stating that she would prefer to go home. Patient now states it would be nice to get a break, and requests placement and care bed. She again denies hallucinations, suici dality, homicidality. Related Data Home Medications Medication Instructions Recorded Confirmed docusate sodium 100 mg PO DAILY 08/28/14 01/07/19 aspirin [[place] Aspirin] 81 mg PO DAILY 03/03/15 01/07/19 divalproex 2,500 mg PO HS 03/03/15 01/07/19 haloperidol 10 mg PO BID 03/03/15 01/07/19 haloperidol decanoate 300 mg IM .MONTHLY 03/03/15 01/07/19 loxapine succinate 75 mg PO BID 03/03/15 01/07/19 metformin 1,000 mg PO BID 03/03/15 01/07/19 nicotine (polacrilex) [Nicorelief] 1 piece gum PO .Q1-2H 03/03/15 01/07/19 oxazepam 15 mg PO QHS PRN 03/03/15 01/07/19 sennosides [senna] 8.6 mg PO HS 06/24/15 01/07/19 acetaminophen [Pain Reliever] 650 mg PO TID PRN 07/16/15 01/07/19 ranitidine HCl [Zantac] 150 mg PO BID tab 07/21/15 01/07/19 ammonium lactate 1 applic TOPICAL QD-BID PRN 12/29/18 01/07/19 atorvastatin 10 mg PO HS 12/29/18 01/07/19 glipizide 5 mg PO DAILY 12/29/18 01/07/19 losartan 25 mg PO HS 12/29/18 01/07/19 multivitamin with minerals 1 tab PO DAILY 12/29/18 01/07/19 [Multiple Vitamin-Minerals] benztropine 0.5 mg PO BID 01/02/19 01/07/19 hydroxyzine HCl 25 mg PO TID PRN 01/02/19 01/07/19 polyethylene glycol 3350 [Miralax] 17 g PO DAILY PRN 01/07/19 01/07/19 Previous Rx's Medication Instructions Recorded ranitidine HCl [Zantac] 150 mg PO BID tab 07/21/15 Allergies Allergy/AdvReac Type Severity Reaction Status Date / Time paliperidone AdvReac Intermediate increased Unverified 01/07/19 14:42 LFT's (Invega Sustenna injection) General Stated Complaint: PsychEval OSCAR: 2 Review of Systems Narrative: Constitutional: denies fevers Eyes: denies eye pain ENT: denies facial pain, dental pain, sore throat Cardiovascular: denies chest pain Respiratory: denies SOB, cough GI: denies abdominal pain, vomiting, diarrhea : denies flank pain MSK: denies back pain, neck pain, arthralgias, myalgias Skin: denies rash Neuro: denies headaches, weakness Psych: Denies suicidality, homicidality, hallucinations PFSH Social History Smoking/Tobacco Use Status: Current every day Tobacco Type: cigarettes Alcohol Intake: current Drug use: Never Exam Narrative Exam Narrative: Constitutional: well and [id number], somewhat disheveled, pleasant, conversing normally with intermittently delusional thinking HENT: head atraumatic/normocephalic/normal inspection, mucous membranes moist Eyes: conjunctiva normal, sclera normal, pupils 3mm b/l Neck: no stridor, normal ROM, trachea midline Chest: normal inspection Resp: normal work of breathing, LCTAB Cardio: normal rate, normal rhythm, no murmur appreciated Skin: warm, dry, normal color, no rash Neuro: alert, not altered, grossly non-focal, normal tone, oriented x3 Ext: no edema, patient with socks on, refused examination of both of her feet, stating that she did not want to take her socks off Psych: normal mood, normal affect, intermittent delusional thinking, no apparent hallucinations, no suicidality Course Vital Signs Vital signs: Vital Signs Temperature 36.7 C 01/07/19 14:22 Pulse 95 H 01/07/19 14:22 Respiratory Rate 18 01/07/19 14:22 Blood Pressure 158/102 H 01/07/19 14:22 Pulse Oximetry 99 01/07/19 14:22 Temperature 36.7 C 01/07/19 14:22 Temperature Source Temporal Artery Scan 01/07/19 14:22 Pulse 95 H 01/07/19 14:22 Respiratory Rate 18 01/07/19 14:22 Respiratory Effort Non-Labored 01/07/19 14:26 Blood Pressure 158/102 H 01/07/19 14:22 Blood Pressure Position Sitting 01/07/19 14:22 Pulse Oximetry 99 01/07/19 14:22 Oxygen Delivery Method Room Air 01/07/19 14:22 Oxygen Flow Rate 0 01/07/19 14:22 Pain Level 0 01/07/19 14:22
[2019-01-07] MEDS: Nicotine 4 MG GUM CH (14:52)
--- NOTE | 2019-01-07 14:56 | PDOC.MHCN_ITS ---
Date of service: 01/07/19 Time of Service: 14:56 Mental Health Crisis Note Presenting Issue How did you arrive at the ED and why did you come: Client arrived via [facility] police. Client has been wandering [facility]. Precipitating Factors Client has been declining for the last three weeks. She has been taking her medication inconsistently. She recently began receiving daily medication deliveries through the [employer] program at [facility]. However, her symptoms have not yet improved. It was reported to the [employer] team by the [facility] police that the client has been walking barefoot in town. She has been going to [employer] and attempting to purchase items repeatedly even though there is no money on her debit card. The client is delusional and believes she has several degrees from various colleges and institutions. 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 She claims her left ankle is fractured in three places and is wearing an ankle brace--however, this has not been verified. So far, she has refused to let Dr. Caroline Villareal examine the foot. She has visited the ED at least three times in the last week. This is the second visit today. Disposition BEHAVIOR: Client is appropriate. However, when the client asked to choose a different coloring book, she yelled at the [facility] [employer] one staff because the staff was not giving her an answer she liked. Client mockingly saluted and called her 'Hitler'. EYE CONTACT: Good eye contact. MOOD: Client is pleasant and cooperative. However, is easily agitated and can quickly raise her voice if triggered. AFFECT: Somewhat flat but responds with animated features. APPETITE: Client reported she is very hungry. SLEEP(trouble falling/staying asleep: Unknown. Plan The plan is to discharge the client to the [facility] Bed. [facility] staff to heidi goldberg.
[2019-01-07 16:10] VITALS: BP 150/85; PULSE 88; RESP 18; O2SAT 98
== END 2019-01-07 16:13 | disposition other institution (70) ==
PROVIDERS: Emergency Provider Student in an Organized Health Care Education/Training Program; PCP Specialist/Technologist Athletic Trainer
DX: F25.9 Schizoaffective disorder, unspecified (principal); E11.22 Type 2 diabetes mellitus with diabetic chronic kidney disease; N18.9 Chronic kidney disease, unspecified; I12.9 Hypertensive chronic kidney disease with stage 1 through stage 4 chronic kidney disease, or unspecified chronic kidney disease; J44.9 Chronic obstructive pulmonary disease, unspecified; F17.210 Nicotine dependence, cigarettes, uncomplicated; Z79.84 Long term (current) use of oral hypoglycemic drugs
CPT/HCPCS: 36415; 80053; 80307; 99282; 99284; 80329; 81003; 81015; 84443; 85025; 87086

== ENCOUNTER 2019-01-17 10:16 | Outpatient (CLI) | payer MEDICARE, SELFPAY ==
[2019-01-17 10:46] LABS: VALPROIC ACID 69.5 ug/mL (50-100)
== END 2019-01-17 10:36 ==
PROVIDERS: PCP Specialist/Technologist Athletic Trainer; Visit Provider Nurse Practitioner Family
DX: F25.0 Schizoaffective disorder, bipolar type (principal); Z79.899 Other long term (current) drug therapy; Z51.81 Encounter for therapeutic drug level monitoring
CPT/HCPCS: 36415; 80164

== ENCOUNTER 2019-01-25 13:39 | Outpatient (REF) | payer MEDICARE, SELFPAY ==
[2019-01-25 20:40] LABS: Abs Immature Grans 0.02 k/cumm (0.0-0.09); Absolute Basophil Count 0.03 k/cumm (0.0-0.2); Absolute Eosinophil Count 0.19 k/cumm (0.0-0.7); Absolute Lymphocyte Count 2.52 k/cumm (1.2-3.4); Absolute Monocyte Count 1.13 k/cumm (0.11-0.7); Absolute Neutrophil Count 3.94 k/cumm (1.2-6.7); Basophils % 0.4; Eosinophils % 2.4; HCT 42.8 % (36.0-46.0); HGB 14.2 g/dL (12.0-15.5); Immature Grans % 0.3; Lymphocytes % 32.2; Mean Corp. HGB Concentration 33.2 g/dL (32.0-36.0); Mean Corpuscular Hemoglobin 29.9 pg (27.0-33.0); Mean Corpuscular Volume 90.1 fL (80-95); Mean Platelet Volume 9.4 fL (8.0-11.0); Monocytes % 14.4; Neutrophils % 50.3; Platelet Count 259 x1000/uL (130-400); RBC 4.75 m/cumm (4.00-5.20); RBC Distribution Width 13.8 % (11.7-14.6); White Blood Cell Count 7.83 k/cumm (4.4-10.8)
[2019-01-25 20:55] LABS: ALT 29 U/L (14-59); AST 26 U/L (15-37); Albumin 3.7 g/dL (3.4-5.0); Alkaline Phosphatase 82 U/L (46-116); Anion Gap 11.7 mmol/L (3-11); BUN 15 mg/dL (7-18); Bilirubin, Total 0.3 mg/dL (0.2-1.0); CO2 24.3 mmol/L (21.0-32.0); Calcium 9.7 mg/dL (8.5-10.1); Chloride 103 mmol/L (98-107); Glucose 67 mg/dL (70-100); Potassium 4.2 mmol/L (3.5-5.1); Sodium 139 mmol/L (136-145); Total Protein 7.5 g/dL (6.4-8.2)
[2019-01-25 21:12] LABS: Hemoglobin A1C 6.9 % (4.5-6.2)
== END 2019-01-25 13:59 ==
LOC: NCHCN 13:39
PROVIDERS: PCP Specialist/Technologist Athletic Trainer; Visit Provider Specialist/Technologist Athletic Trainer
DX: I10 Essential (primary) hypertension (principal); E88.09 Other disorders of plasma-protein metabolism, not elsewhere classified; D69.6 Thrombocytopenia, unspecified; E09.9 Drug or chemical induced diabetes mellitus without complications
CPT/HCPCS: 80053; 83036; 83735; 84443; 85025